=== PATIENT | male | born 2000 | race Caucasian/White ===

== ENCOUNTER 2021-01-20 00:12 | Emergency (ER) | payer SELFPAY ==
--- NOTE | 2021-01-20 01:53 | EDPHYS ---
Physician Documentation [facility] Name: Moe Gomez Age: 20 yrs Sex: Male : 2000 Arrival Date: 01/20/2021 Time: 00:13 Bed 10 Private MD: ED Physician Javier Herndon HPI: 01/20 01:44 This 20 yrs old Male presents to ER via Ambulatory with complaints of Sore morgan Throat. 01:44 The patient presents with sore throat. The patient describes throat pain as raw, morgan scratchy. Onset: The symptoms/episode began/occurred 2 day(s) ago. Severity of symptoms: At their worst the symptoms were mild, in the emergency department the symptoms are unchanged. Modifying factors: The symptoms are alleviated by nothing, the symptoms are aggravated by nothing. Associated signs and symptoms: The patient has no apparent associated signs or symptoms. The patient has not experienced similar symptoms in the past. Historical: - Allergies: 00:22 No Known Allergies; wg - Home Meds: 00:22 None [Active]; wg - PMHx: 00:22 None; wg - Immunization history:: Adult Immunizations up to date. - Social history:: Smoking status: Reported history of juuling and/or vaping. ROS: 01:47 Constitutional: Negative for fever, chills, and weight loss, Eyes: Negative for injury, morgan pain, redness, and discharge, Neck: Negative for injury, pain, and swelling, Cardiovascular: Negative for chest pain, palpitations, and edema, Respiratory: Negative for shortness of breath, cough, wheezing, and pleuritic chest pain, Abdomen/GI: Negative for abdominal pain, nausea, vomiting, diarrhea, and constipation, Back: Negative for injury and pain, : Negative for injury, bleeding, discharge, and swelling, MS/Extremity: Negative for injury and deformity, Skin: Negative for injury, rash, and discoloration, Neuro: Negative for headache, weakness, numbness, tingling, and seizure, Psych: Negative for depression, anxiety, suicide ideation, homicidal ideation, and hallucinations, Allergy/Immunology: Negative for hives, rash, and allergies, Endocrine: Negative for neck swelling, polydipsia, polyuria, polyphagia, and marked weight changes, Hematologic/Lymphatic: Negative for swollen nodes, abnormal bleeding, and unusual bruising. 01:47 ENT: Positive for sore throat. Exam: 01:47 Constitutional: This is a well developed, well nourished patient who is awake, alert, morgan and in no acute distress. Head/Face: Normocephalic, atraumatic. Eyes: Pupils equal round and reactive to light, extra-ocular motions intact. Lids and lashes normal. Conjunctiva and sclera are non-icteric and not injected. Cornea within normal limits. Periorbital areas with no swelling, redness, or edema. Neck: Trachea midline, no thyromegaly or masses palpated, and no cervical lymphadenopathy. Supple, full range of motion without nuchal rigidity, or vertebral point tenderness. No Meningismus. Chest/axilla: Normal chest wall appearance and motion. Nontender with no deformity. No lesions are appreciated. Cardiovascular: Regular rate and rhythm with a normal S1 and S2. No gallops, murmurs, or rubs. Normal PMI, no JVD. No pulse deficits. Respiratory: Lungs have equal breath sounds bilaterally, clear to auscultation and percussion. No rales, rhonchi or wheezes noted. No increased work of breathing, no retractions or nasal flaring. Abdomen/GI: Soft, non-tender, with normal bowel sounds. No distension or tympany. No guarding or rebound. No evidence of tenderness throughout. Back: No spinal tenderness. No costovertebral tenderness. Full range of motion. Male : Normal genitalia with no discharge or lesions. Skin: Warm, dry with normal turgor. Normal color with no rashes, no lesions, and no evidence of cellulitis. MS/ Extremity: Pulses equal, no cyanosis. Neurovascular intact. Full, normal range of motion. Neuro: Awake and alert, GCS 15, oriented to person, place, time, and situation. Cranial nerves II-XII grossly intact. Motor strength 5/5 in all extremities. Sensory grossly intact. Cerebellar exam normal. Normal gait. Psych: Awake, alert, with orientation to person, place and time. Behavior, mood, and affect are within normal limits. 01:47 ENT: Posterior pharynx: Airway: normal, no evidence of obstruction, Tonsils: bilaterally enlarged, with erythema, with exudate, Uvula: midline, edematous, erythema, swelling, that is mild, erythema, that is mild, exudate, that is mild, peritonsillar mass, is not appreciated. Vital Signs: 00:18 BP 122 / 68; Pulse 100; Resp 18; Temp 98.9; Pulse Ox 97% on R/A; Weight 104.33 kg; wg Height 6 ft. (182.88 cm); Pain 7/10; 02:05 BP 118 / 65; Pulse 90; Resp 17; Temp 98.7(O); Pulse Ox 100% on R/A; Pain 0/10; bc5 00:18 Body Mass Index 31.19 (104.33 kg, 182.88 cm) wg MDM: 01:02 Patient medically screened. morgan 01:47 Differential diagnosis: viral Infection, bacterial infection, URI, UTI, cocksackie morgan virus, echovirus infection, group A strep tonsillitis, influenza, peritonsillar abscess pharyngitis, tonsillitis, uvulitis, viral syndrome. Data reviewed: vital signs, nurses notes, lab test result(s). Data interpreted: draw in hand: not applicable for this patient encounter. rate is 100 beats/min, rhythm is regular, Pulse oximetry: on room air is 97 %. Counseling: I had a detailed discussion with the patient and/or guardian regarding: the historical points, exam findings, and any diagnostic results supporting the discharge/admit diagnosis, lab results, the need for outpatient follow up, for definitive care, a family practitioner. 01/20 00:32 Order name: Strep; Complete Time: 01:43 wg Administered Medications: 01:58 Drug: Augmentin (Amoxicillin-Clavulanate) 875 mg Route: PO; 5 02:05 Follow up: Response: Medication administered at discharge. 5 Disposition Summary: 01/20/21 01:52 Discharge Ordered Location: Home morgan Problem: new morgan Symptoms: have improved morgan Condition: Stable morgan Diagnosis - Streptococcal pharyngitis morgan - Fever, unspecified morgan Followup: morgan - With: Private Physician - When: 2 - 3 days - Reason: Recheck today's complaints, Continuance of care, Re-evaluation by your physician Discharge Instructions: - Discharge Summary Sheet morgan - Pharyngitis morgan - Sore Throat morgan - Strep Throat, Adult morgan - Fever, Pediatric morgan - Strep Throat, Adult, Sryr-vv-[id number] morgan - Pharyngitis, [id number] morgan - Sore Throat, [id number] [facility] Forms: - Medication Reconciliation Form morgan - Thank You Letter morgan - Antibiotic Education morgan - Prescription Opioid Use morgan - Work release form [facility] Prescriptions: - Augmentin 875-125 mg Oral Tablet - take 1 tablet by ORAL route every 12 hours for 10 days; 20 tablet; Refills: 0, morgan Product Selection Permitted Signatures: Dispatcher [employer] EDMS Javier Herndon MD MD cha Gamba, Liam, RN Chelsea Panda RN RN bc5 Corrections: (The following items were deleted from the chart) 00:37 00:32 CORONAVIRUS+MR.LAB.BRZ ordered. EDMS EDMS 00:37 00:32 Influenza Screen (A \T\ B)+BA.LAB.BRZ ordered. EDMS EDMS
--- NOTE | 2021-01-20 01:53 | ER ---
Nurse's Notes [facility] Name: Moe Gomez Age: 20 yrs Sex: Male : 2000 Arrival Date: 01/20/2021 Time: 00:13 Bed 10 Private MD: Diagnosis: Streptococcal pharyngitis;Fever, unspecified Presentation: 01/20 00:18 Chief complaint: Patient states: Sore Throat for 6 days. Headache for 4 days. States he wg has had N/V for 5-6 days. States unable to keep anything down. Vomited 2300 yellow emesis. Using Chloraseptic spray and noticed some red in his previous emesis. Pt denies SOB, CP, Dizziness and Abd pain. Coronavirus screen: Vaccine status: Patient reports being unvaccinated. At this time, the client does not indicate any symptoms associated with coronavirus-19. Ebola Screen: Patient negative for fever greater than or equal to 101.5 degrees Fahrenheit, and additional compatible Ebola Virus Disease symptoms Patient denies exposure to infectious person. Patient denies travel to an Ebola-affected area in the 21 days before illness onset. Initial Sepsis Screen: Does the patient meet any 2 criteria? No. Patient's initial sepsis screen is negative. Does the patient have a suspected source of infection? No. Patient's initial sepsis screen is negative. Risk Assessment: Do you want to hurt yourself or someone else? Patient reports no desire to harm self or others. Onset of symptoms was January 14, 2021. Care prior to arrival: Medication(s) given: Aleve, Chloraseptic. 00:18 Method Of Arrival: Ambulatory 00:18 Acuity: JETHRO 4 Triage Assessment: 00:22 General: Appears in no apparent distress. comfortable, obese, well groomed, Behavior is wg calm, cooperative, appropriate for age. Pain: Complains of pain in Throat and head. EENT: Oral mucosa is moist. Good dentition noted. Respiratory: Reports cough that is non-productive. Historical: - Allergies: 00:22 No Known Allergies; wg - Home Meds: 00:22 None [Active]; wg - PMHx: 00:22 None; wg - Immunization history:: Adult Immunizations up to date. - Social history:: Smoking status: Reported history of juuling and/or vaping. Screenin:04 Abuse screen: Denies threats or abuse. Denies injuries from another. Nutritional bc5 screening: No deficits noted. Tuberculosis screening: No symptoms or risk factors identified. Fall Risk None identified. No fall in past 12 months (0 pts). No secondary diagnosis (0 pts). No IV (0 pts). Ambulatory Aid- None/Bed Rest/Nurse Assist (0 pts). Gait- Normal/Bed Rest/Wheelchair (0 pts) Mental Status- Oriented to own ability (0 pts). Total Begum Fall Scale indicates No Risk (0-24 pts). Assessment: 01:05 Respiratory: Airway is patent Respiratory effort is even, unlabored, Breath sounds are bc5 clear bilaterally. 01:06 EENT: Throat. bc5 01:07 Reassessment: Pt c/o vomiting and sore x 6 days, pt states pain w/swallowing and today bc5 has been vomiting "even without eating anything I throw up yellow stuff". Vital Signs: 00:18 BP 122 / 68; Pulse 100; Resp 18; Temp 98.9; Pulse Ox 97% on R/A; Weight 104.33 kg; wg Height 6 ft. (182.88 cm); Pain 7/10; 02:05 BP 118 / 65; Pulse 90; Resp 17; Temp 98.7(O); Pulse Ox 100% on R/A; Pain 0/10; bc5 00:18 Body Mass Index 31.19 (104.33 kg, 182.88 cm) ED Course: 00:13 Patient arrived in ED. 00:22 Triage completed. 00:22 Arm band placed on right wrist. 01:02 Javier Herndon MD is Attending Physician. [facility] 01:04 Chelsea Panda, MAGDALENO is Primary Nurse. bc5 01:05 Patient has correct armband on for positive identification. Bed in low position. Call 5 light in reach. Side rails up X 1. 01:05 No provider procedures requiring assistance completed. bc5 Administered Medications: 01:58 Drug: Augmentin (Amoxicillin-Clavulanate) 875 mg Route: PO; bc5 02:05 Follow up: Response: Medication administered at discharge. bc5 Outcome: 01:52 Discharge ordered by . morgan 02:05 Patient left the ED. 5 Signatures: Yanick, JavierMD MD morgan khan Wendy wm Gamba, Liam, MAGDALENO wg Chelsea Panda RN RN bc5
[2021-01-20] MEDS ORDERED: AMOX/K CLAV 875 MG TAB ONE (02:21)
[2021-01-20 02:44] LABS: SARS-COV-2 RT PCR POSITIVE (NEGATIVE)
[2021-01-20 03:26] VITALS: BP 118/65; TEMP 98.7; O2SAT 100
== END 2021-01-20 02:05 | disposition home or self-care (01) ==
LOC: ER 00:12
DX: J02.0 Streptococcal pharyngitis (principal)
CPT/HCPCS: 0240U; 87081; 99283